=== PATIENT | male | born 1970 | race Caucasian/White ===

== ENCOUNTER 2022-07-24 09:00 | Day surgery (SDC) | payer BC ==
[2022-07-24] MEDS ORDERED: CEFAZOLIN SODIUM 1 GM/VIAL ONE (09:23)
[2022-07-24] MEDS ORDERED: Ringers Lactate 1,000 ML IV ONE (09:24)
[2022-07-24] MEDS ORDERED: OXYMETAZOLINE HCL 0.05% 15ML NAS ONE ×2 (10:12→12:04)
[2022-07-24] MEDS ORDERED: BACITRACIN OINTMENT 14 GM TUBE TOP ONE (10:12)
[2022-07-24] MEDS ORDERED: LIDOCAINE 1% W/EPI 1:100,000 10 ML VIAL ONE (10:12)
[2022-07-24] MEDS ORDERED: NA CHLORIDE 0.9% 500 ML ONE (10:13)
[2022-07-24] MEDS ORDERED: dexAMETHasone 10 MG/ML VIAL ONE (10:19)
[2022-07-24] MEDS ORDERED: ROCURONIUM 50 MG/5 ML VIAL IV ONE (10:19)
[2022-07-24] MEDS ORDERED: MIDAZOLAM HCL 2 MG/2 ML INJ ONE (10:19)
[2022-07-24] MEDS ORDERED: LIDOCAINE 2% MPF 5 ML VIAL ONE (10:19)
[2022-07-24] MEDS ORDERED: FENTANYL CITR 100 MCG/2 ML ONE ×2 (10:19→12:13)
[2022-07-24] MEDS ORDERED: propofoL 200 MG/20 ML VIAL IV ONE (10:19)
[2022-07-24] MEDS ORDERED: ONDANSETRON 4 MG/2 ML VIAL ONE (10:21)
[2022-07-24] MEDS ORDERED: Phenylephrine HCl 10 MG/ML 1 ML VIAL ONE (11:32)
[2022-07-24] MEDS ORDERED: NS 0.9% VIAL 20 ML ONE (11:32)
[2022-07-24] MEDS: MORPHINE 4 MG/ML SYR ONE ×2 (13:18→13:25)
[2022-07-24] MEDS ORDERED: MEPERIDINE HCL 25 MG/ML SYR ONE (13:28)
[2022-07-24 13:35] VITALS: O2SAT 96
[2022-07-24 14:39] VITALS: BP 148/95; TEMP 97
--- NOTE | 2022-07-26 14:23 | OP ---
Date of Procedure: 07/24/2022 Surgeon: MARA COLORADO Preoperative Diagnoses: 1.Bilateral nasal septal deviation. 2.Bilateral inferior turbinate hypertrophy. 3.Postnasal drip and chronic rhinitis. Postoperative Diagnoses: 1.Bilateral nasal septal deviation. 2.Bilateral inferior turbinate hypertrophy. 3.Postnasal drip and chronic rhinitis. Procedures: 1.Bilateral nasal endoscopy with septoplasty. 2.Bilateral Coblation of inferior turbinates. 3.Bilateral intranasal ClariFix treatment with cryotherapy. Anesthesia: General endotracheal anesthesia was administered. I also infiltrated approximately 10 m L of 1% lidocaine with 1:100,000 epinephrine into bilateral inferior turbinate mucosa and bilateral n ruth septal mucosa. Estimated Blood Loss: Approximately 5 mL. Specimens: Nasal septal cartilage and bone were submitted to Pathology for evaluation. Findings: Bilateral nasal septal deviation with bowing of the caudal cartilaginous septum and large right posterior septal spur. Bilateral inferior turbinate hypertrophy, 3/4; mucosal inflammation not ed over the sphenopalatine, bilateral, area of the nose. Complications: None. Disposition: Stable. The patient tolerated the procedure well. Indications For Procedure: Patient is a pleasant 51-year-old male who presented to my outpatient [facility] with chronic bilateral nasal obstruction, postnasal drip and chronic mouth breathing secondary to nasal obstruction. The obstruction was due to his deviated septum and inferior turbinate hypertroph y and postnasal drip was due to overproduction of the mucus by the nasal mucous gland which are inner vated by the sphenopalatine nerve branches. These were indications to bring the patient to operative suite for the above-mentioned procedures. He understood. All questions were answered. Risks versu s benefits and complications were explained in detail and a consent form was signed which was placed on the chart. Description Of Procedure: Patient was transferred from the preoperative holding area to the operativ e suite by Department of Anesthesia, placed on the operating room table supine, sedated and intubated in normal fashion. Table was rotated 180 degrees. I inserted Afrin-soaked nasal pledgets into bila teral nasal cavities after infiltrating bilateral nasal septal mucosa and inferior turbinate mucosa w ith 10 mL of 1% lidocaine with 1:100,000 epinephrine. Patient was then sterilely prepped and draped. The pledgets were then removed and a 0-degree rigid nasal endoscope was introduced into bilateral n ruth cavities in order to evaluate the surgical areas. Patient had significant obstruction posterior ly on the right due to a large septal spur and it was my decision to perform the septoplasty first as it would be difficult to reach the sphenopalatine area of the nose for cryotherapy. I made a modifi ed Chandler incision into the left nasal septal mucosa and a large caudal septal bowing was detected a nd this cartilage was removed with a #15 blade scalpel and Be forceps. I then elevated the fl aps bilaterally utilizing a long nasal speculum, a Holden elevator, a Bard-Chito blade, and a septal knife. The crossover incision was made utilizing the Bard-Chito knife. Once I was able to isolate the cartilage and bone, I was able to remove the obstructive pieces with the Bard-Chito blade and a Holden elevator and Be forceps. The septal spur was removed with a chisel as was part of the m axillary crest. The nasal septal mucosal flaps were then reapproximated with 4-0 plain gut suture in a continuous box like fashion and then the mucosal incisional edges were reapproximated with 4-0 halina in gut suture in a continuous running fashion. Next, my attention was placed to the ClariFix device. I was able to easily advance to the level of bilateral sphenopalatine foramen where the branches of the sphenopalatine nerves were located and the ClariFix was placed in that pocket in two places on e ach side of the nose for approximately 30 seconds apiece and then the device was removed. Next, my attention was placed to the inferior turbinates whereby mucosal incisions were made with a # 15 blade scalpel and then the submucous pocket was created with the Coblator device and then I perfor med bilateral Coblation of inferior turbinates on a setting of 7 for ablation and 3 for coagulation. I also further outfractured the inferior turbinates and then patient had a polypoid right inferior t urbinate posteriorly. So I used the suction Bovie to cauterize that area and reduced the size of the tissue. I then inserted Ellis splints coated with antibiotic ointment into bilateral nasal cavities and then I secured it at the caudal septum with a 2-0 Prolene suture. A mustache dressing was place d. He tolerated procedures well, and will be discharged home on analgesic medication as well as oral and topical antibiotics. He will follow up in 1 week or sooner if needed. KD/MODL Voice ID: [id number] Report ID: [id number]
== END 2022-07-24 14:35 | disposition home or self-care (01) ==
LOC: OR 09:00
PROVIDERS: ATTEND Otolaryngology Facial Plastic Surgery
PROC: 095P8ZZ Destruction of Accessory Sinus, Via Natural or Artificial Opening Endoscopic (ICD-10-PCS; 2022-07-24)
PROC: 09BK8ZZ Excision of Nasal Mucosa and Soft Tissue, Via Natural or Artificial Opening Endoscopic (ICD-10-PCS; 2022-07-24)
PROC: 09BM8ZZ Excision of Nasal Septum, Via Natural or Artificial Opening Endoscopic (ICD-10-PCS; principal; 2022-07-24 10:30)
DX: J34.2 Deviated nasal septum (principal); J34.3 Hypertrophy of nasal turbinates; R09.82 Postnasal drip; J31.0 Chronic rhinitis
CPT/HCPCS: 30117; 30520; 30802; 88300; A4216; J2704; J2370; J2001; J2250; J3010 ×2; J1100; J2175; J2405; J7120; J7050; J0690